=== PATIENT | male | born 1975 | race Caucasian/White ===

== ENCOUNTER → 2020-06-03 | Outpatient (CLI) | payer BC ==
--- NOTE | 2020-06-03 14:39 | US ---
EXAMINATION TYPE: US abdomen complete DATE OF EXAM: 06/03/2020 COMPARISON: NONE CLINICAL HISTORY: R94.5 Elevated LFT. EXAM MEASUREMENTS: Liver Length: 13.5 cm Gallbladder Wall: 0.3 cm CBD: 0.3 cm Spleen: 12.7 cm Right Kidney: 10.3 x 5.5 x 6.1 cm Left Kidney: 10.1 x 6.2 x 6.1 cm Technically difficult study due to extensive midline bowel gas. Pancreas: Obscured by bowel gas Liver: wnl Gallbladder: No stones seen Evidence for sonographic Power's sign: No CBD: wnl Spleen: wnl Right Kidney: Simple appearing cyst laterally measures 1.8 x 1.9 x 1.6 cm Left Kidney: No hydronephrosis or masses seen Upper IVC: wnl Abd Aorta: not visualized proximally due extensive midline bowel gas, otherwise wnl. IMPRESSION: 1. Exam is limited due to the timing of bowel gas present. 2. Abdominal structures visualized with ultrasound at this time are unremarkable.
== END | disposition home or self-care (01) ==
LOC: RADUSWWP 08:21
PROVIDERS: ATTEND Family Medicine
DX: R94.5 Abnormal results of liver function studies (principal)
CPT/HCPCS: 76700

== ENCOUNTER 2021-04-09 07:55 | Day surgery (SDC) | payer BC ==
[2021-04-07 09:38] VITALS: BMI 26.5
[~2021-04-09 07:55] MED LIST: LACTATED RINGERS 1,000 ML IV SCH
[2021-04-09 08:24] VITALS: RESP 16; TEMP 97.7
[2021-04-09] MEDS ORDERED: LIDOCAINE 1% (10MG/ML) FOR IV START INTRADERMA ONE (08:24)
[2021-04-09] MEDS ORDERED: PROPOFOL 10 MG/ML 20 ML VIAL IV ONE (08:45)
--- NOTE | 2021-04-09 08:49 | P.HPIHPCON ---
History of Present Illness H&P Date: 04/09/21 45-year-old male presents today for screening colonoscopy. He has never had a colonoscopy previously. He denies any blood in his stool. Denies any family history of colon cancer or inflammatory bowel disease. Consent for Procedure: I have explained the operation/procedure to the patient, including the risks, benefits, side effects, alternative therapies (including not receiving the proposed treatment or service), the likelihood of the patient achieving his/her goals, and potential recuperation problems for the procedure/sedation/analgesia, as well as any blood products, if indicated. I also explained to the patient the risks, benefits and side effects of the alternatives, as well as the risks related to not receiving the proposed procedure, care, treatment, or services. - Review of Systems All systems: negative Past Medical History Past Medical History: Hyperlipidemia History of Any Multi-Drug Resistant Organisms: None Reported Past Surgical History: Orthopedic Surgery Additional Past Surgical History / Comment(s): RT ACL REPAIR Past Anesthesia/Blood Transfusion Reactions: Family History of Problems w/ Anesthesia Additional Past Anesthesia/Blood Transfusion Reaction / Comment(s): DAD HAS UNKNOWN "ENZYME" THAT MAKES IT HARD FOR HIM TO COME OUT OF ANESTHESIA. Smoking Status: Never smoker - Past Family History Mother Family Medical History: No Reported History Medications and Allergies Home Medications Medication Instructions Recorded Confirmed Type RX: Rosuvastatin Calcium 5 mg PO DAILY 04/07/21 04/09/21 History Allergies Allergy/AdvReac Type Severity Reaction Status Date / Time No Known Allergies Allergy Verified 04/09/21 08:21 Surgical - Exam Osteopathic Statement: *. No significant issues noted on an osteopathic structural exam other than those noted in the History and Physical/Consult. Vital Signs Temp Pulse Resp BP Pulse Ox 97.7 F 75 16 117/69 96 04/09/21 08:22 04/09/21 08:22 04/09/21 08:22 04/09/21 08:22 04/09/21 08:22 - General well nourished, no distress - Neck trachea midline - Respiratory normal respiratory effort - Abdomen Abdomen: soft, non tender - Psychiatric oriented to time, oriented to person, oriented to place Assessment and Plan Plan: Plan is for screening colonoscopy. Risks, benefits and alternatives were provided to the patient. Consent was provided. Further recommendations to be made after procedure.
--- NOTE | 2021-04-09 09:10 | P.PCN ---
Date of Procedure: 04/09/21 Preoperative Diagnosis: Screening for colon cancer Postoperative Diagnosis: Overall, normal colon and mild internal hemorrhoids Procedure(s) Performed: Colonoscopy Anesthesia: MAC Surgeon: Mani Aparicio Pathology: none sent Condition: stable Disposition: same day Indications for Procedure: Patient presents for screening colonoscopy. Risks, benefits and alternatives were provided to the patient. He has never had colonoscopy previously. Denies any blood in the stool. Operative Findings: Normal colon Mild internal hemorrhoids Description of Procedure: The patient was brought into the endoscopy suite and placed in left lateral decubitus position. Adequate sedation was achieved using conscious sedation. A digital rectal exam was performed and internal hemorrhoids were palpated. An endoscope was then placed in the rectum and advanced to the cecum as identified by landmarks including the appendiceal orifice and the ileocecal valve. The prep was good. The colonoscope was slowly withdrawn, examining for any mucosal antibiotics. The cecum, ascending, transverse, descending and sigmoid colon were visualized adequately. There were no large neoplastic lesions noted throughout the colon. There were no obvious polyps noted throughout the colon. No evidence of diverticulosis. Retroflexion was performed in the rectum and internal hemorrhoids were visible. Excess air was removed from the colonoscope withdrawn and the procedure terminated. The patient was then transferred to the recovery unit in stable condition. Repeat colonoscopy should be performed in 8 years.
[2021-04-09 09:32] VITALS: BP 135/86; PULSE 76
== END 2021-04-09 09:48 | disposition home or self-care (01) ==
LOC: ORWHC2ENDO 07:55
PROVIDERS: ATTEND Surgery
DX: Z12.11 Encounter for screening for malignant neoplasm of colon (principal); K64.8 Other hemorrhoids; E78.5 Hyperlipidemia, unspecified; Z98.890 Other specified postprocedural states; Z79.899 Other long term (current) drug therapy
CPT/HCPCS: J2704; G0121; 45378